=== PATIENT | female | born 1980 | race Caucasian/White ===

== ENCOUNTER → 2021-04-04 | Outpatient (CLI) | payer OTHER ==
[2021-04-05 08:10] LABS: HBSAG SCREEN Negative (Negative); HCV ANTIBODY <0.1 (0.0-0.9)
[2021-04-05 09:10] LABS: HIV AB/P24 AG SCREEN Non Reactive (Non Reactive)
[2021-04-06 11:11] LABS: HPV 16 Negative (Negative); HPV 18 Negative (Negative); HPV OTHER HR TYPES Negative (Negative)
== END ==
LOC: LAB SHORT 14:47
PROVIDERS: Family Medicine
DX: Z11.3 Encounter for screening for infections with a predominantly sexual mode of transmission (principal)
CPT/HCPCS: 86592; 86803; 87340; 87389

== ENCOUNTER → 2021-08-30 | Outpatient (CLI) | payer OTHER | END | disposition home or self-care (01) | LOC: LAB SHORT 07:42 → PLD 07:42 | DX: D22.30 Melanocytic nevi of unspecified part of face (principal) | CPT/HCPCS: 88305 ==

== ENCOUNTER 2023-02-15 06:45 | Day surgery (SDC) | payer OTHER ==
[2023-02-12 08:50] LABS: BASOPHILS ABSOLUTE AUTO 0.03 K/mm3 (0.00-0.23); BASOPHILS PERCENT AUTO 1 % (0-2); EOSINOPHILS ABSOLUTE AUTO 0.15 K/mm3 (0.00-0.68); EOSINOPHILS PERCENT AUTO 3 % (0-6); Hematocrit 41.8 % (33.0-51.0); IMMATURE GRAN ABSOLUTE AUTO 0.02 K/mm3 (0.00-0.10); IMMATURE GRAN PERCENT AUTO 0 % (0-1); LYMPHOCYTES PERCENT AUTO 25 % (21-46); MONOCYTES ABSOLUTE AUTO 0.39 K/mm3 (0.16-1.47); MONOCYTES PERCENT AUTO 7 % (4-13); Mean Corpuscular HGB Conc 33.5 g/dL (31.5-36.5); Mean Corpuscular Volume 87 fL (80-100); Mean Platelet Volume 10.8 fL (9.1-12.4); NEUTROPHILS ABSOLUTE AUTO 3.69 K/mm3 (1.96-9.15); NEUTROPHILS PERCENT AUTO 65 % (41-73); Platelet Count 232 K/mm3 (150-400); RDW Coefficient Variation 12.6 % (11.7-14.2); RDW Standard Deviation 39.8 fL (35.1-46.3); Red Blood Cell Count 4.83 M/mm3 (3.80-5.20); White Blood Cell Count 5.68 K/mm3 (4.00-11.30)
[~2023-02-15] VITALS: Ht 172.7 cm; Wt 127.7 kg
[2023-02-15] VITALS (18 sets, daily range): BP systolic 143–172; BP diastolic 85–121
[2023-02-15] MEDS ORDERED: CALCIUM 500+D1 EACH PO (07:22)
[2023-02-15] MEDS ORDERED: MULVITA PO (07:23)
[2023-02-15] MEDS ORDERED: Cranberry425 MG PO (07:23)
[2023-02-15] MEDS ORDERED: IRON VITAMIN C PO (07:24)
[2023-02-15] MEDS ORDERED: ONDA4ODT PO (07:25)
[2023-02-15] MEDS ORDERED: LOTREXONE1.5 MG (07:25)
[2023-02-15] MEDS ORDERED: VITAMIN B122500 MC1 PO (07:26)
[2023-02-15] MEDS ORDERED: ROPI.25 PO (07:27)
--- NOTE | 2023-02-15 07:43 | NUR ---
Ambulatory in Day Surgery History, Chart, Medications and Allergies reviewed before start of procedure. Pre-Op teaching done. Pt verbalizes understanding.
--- NOTE | 2023-02-15 08:06 | NUR ---
02/15/23 0806 Ambika Greer History, Chart, Medications and Allergies reviewed before start of procedure.MONITOR INTACT WITH CONTINUOUS PULSE OXIMETRY, CONTINUOUS END TITAL CO2, AND INTERMITTENT BLOOD PRESSURE.3-LEAD EKG REVIEWED WITH PHYSICIAN PRIOR TO START OF PROCEDURE.PACER PADS IN PLACE.O2 VIA N/C INTACT THROUGHOUT SEDATION/PROCEDURE.DR. CHAVEZ FOR ANESTHESIA.
--- NOTE | 2023-02-15 13:51 | NUR ---
PT ARRIVED TO UNIT FROM PACU C/O OF VIEIRA CATH CAUSING IRRITATION. DC'D PER ORDERS PER PT REQUEST. PT GOT UP TO RESTROOM WITH BINDER IN PLACE AND GAIT BELT FOR SAFETY. VOIDED SMALL AMOUNT BUT REPORTED STILL FELT IRRITATION. MEDICATED PER ORDERS FOR NAUSEA AND PAIN. CALL LIGHT IN REACH. SISTER BEDSIDE.
--- NOTE | 2023-02-15 17:15 | NUR ---
SUMMARY MEDICATED PT PER ORDERS FOR PAIN SINCE ARRIVING TO FLOOR. PT HAS SLEPT OFF AND ON. PT VOIDING. TOLERATED SMALL AMOUNT PO INTAKE WITH PAIN PILL. PT WAS MEDICATED SHORTLY AFTER ARRIVING TO UNIT FOR NAUSEA. NO EMESIS NOTED. USES CALL LIGHT APPROPRIATELY. SISTER BEDSIDE.
[2023-02-16 04:06] VITALS: BP 174/102
[2023-02-16 04:37] LABS: BASOPHILS ABSOLUTE AUTO 0.02 K/mm3 (0.00-0.23); BASOPHILS PERCENT AUTO 0 % (0-2); EOSINOPHILS ABSOLUTE AUTO 0.02 K/mm3 (0.00-0.68); EOSINOPHILS PERCENT AUTO 0 % (0-6); Hematocrit 40.7 % (33.0-51.0); Hemoglobin 13.8 g/dL (11.5-16.0); IMMATURE GRAN ABSOLUTE AUTO 0.03 K/mm3 (0.00-0.10); IMMATURE GRAN PERCENT AUTO 0 % (0-1); LYMPHOCYTES ABSOLUTE AUTO 1.18 K/mm3 (0.84-5.20); LYMPHOCYTES PERCENT AUTO 11 % (21-46); MONOCYTES ABSOLUTE AUTO 0.77 K/mm3 (0.16-1.47); MONOCYTES PERCENT AUTO 7 % (4-13); Mean Corpuscular HGB 29.1 pg (26.0-34.0); Mean Corpuscular HGB Conc 33.9 g/dL (31.5-36.5); Mean Corpuscular Volume 86 fL (80-100); Mean Platelet Volume 10.7 fL (9.1-12.4); NEUTROPHILS ABSOLUTE AUTO 8.54 K/mm3 (1.96-9.15); NEUTROPHILS PERCENT AUTO 81 % (41-73); Platelet Count 258 K/mm3 (150-400); RDW Coefficient Variation 12.7 % (11.7-14.2); RDW Standard Deviation 39.8 fL (35.1-46.3); Red Blood Cell Count 4.74 M/mm3 (3.80-5.20); White Blood Cell Count 10.56 K/mm3 (4.00-11.30)
--- NOTE | 2023-02-16 06:10 | NUR ---
SHIFT SUMMARY POD 1 TOTAL LAP HYSTR. VS WNL FOR PT. NO ACUTE CHANGES OVERNIGHT. LAP SITE x3 C/D/I. PT AMBULATING TO RESTROOM INDEPENDENTLY. PT REPORTS NO DRAINAGE ON PERLA PADS WHEN TOILETING. PAIN REPORTS PAIN TOLERABLE, MEDICATED PER EMAR - BASELINE CHRONIC PAIN, USE OF HEAT & ICE AND ABD BINDER FOR PAIN MANAGEMENT. TOLERATING ORALS. CALL LIGHT WITHIN REACH, BED IN LOWEST POSITION, WILL REPORT TO DAY RN.
[2023-02-16 07:20] VITALS: BP 153/90
[2023-02-16] MEDS ORDERED: IBUP400 PO (11:17)
[2023-02-16] MEDS ORDERED: Percocet 5-3251 EACH PO (11:18)
[2023-02-16] MEDS ORDERED: PROM25 PO (11:19)
[2023-02-16] MEDS ORDERED: SIME80CH PO (11:20)
--- NOTE | 2023-02-16 13:04 | NUR ---
DISCHARGE: PT DOING WELL POST OP. DC PACKET PRINTED AND PT EDUCATED. PT ALREADY HAS SCRIPTS . PT VERBALIZED UNDERSTANDING OF POST OP EDUCATION. LEFT UNIT VIA WHEELCHAIR AT 1150
== END 2023-02-16 11:53 | disposition home or self-care (01) ==
LOC: ORSCMMR 06:45 → ORD 08:00 → ORSCMMR 08:00 → SURS 12:25 → ORSCMMR 02-16 11:53
PROVIDERS: Obstetrics & Gynecology
PROC: 0UT7FZZ Resection of Bilateral Fallopian Tubes, Via Natural or Artificial Opening With Percutaneous Endoscopic Assistance (ICD-10-PCS; principal; 2023-02-15 08:00)
PROC: 0U5F4ZZ Destruction of Cul-de-sac, Percutaneous Endoscopic Approach (ICD-10-PCS; principal; 2023-02-15 08:00)
PROC: 0UT9FZZ Resection of Uterus, Via Natural or Artificial Opening With Percutaneous Endoscopic Assistance (ICD-10-PCS; principal; 2023-02-15 08:00)
DX: N92.1 Excessive and frequent menstruation with irregular cycle (principal); N94.6 Dysmenorrhea, unspecified; N80.329 Endometriosis of the posterior cul-de-sac, unspecified depth; E66.9 Obesity, unspecified; Z68.41 Body mass index [BMI] 40.0-44.9, adult; J45.909 Unspecified asthma, uncomplicated; N72 Inflammatory disease of cervix uteri; N83.8 Other noninflammatory disorders of ovary, fallopian tube and broad ligament; Z79.899 Other long term (current) drug therapy
CPT/HCPCS: 36415; 84702; 85025; 86850; 86900; 86901; 88305; 88307; A9270; J0360; J0690; J1100; J1170; J1885; J2250; J2405; J2704; J2710; J3010; J7120

== ENCOUNTER → 2023-12-09 | Outpatient (CLI) | payer OTHER ==
[~2023-12-09] MED LIST: CALCIUM 500+D1 EACH PO; Cranberry425 MG PO; IBUP400 PO; IRON VITAMIN C PO; LOTREXONE1.5 MG; MULVITA PO; ONDA4ODT PO; PROM25 PO; Percocet 5-3251 EACH PO; ROPI.25 PO; SIME80CH PO; VITAMIN B122500 MC1 PO
== END ==
LOC: LAB 14:49 → LAB SHORT 14:49
DX: L02.92 Furuncle, unspecified (principal)
CPT/HCPCS: 87070; 87075; 87077; 87147; 87186; 87205

== ENCOUNTER → 2024-01-11 | Outpatient (CLI) | payer OTHER | LOC: LAB SHORT 15:55 → LAB 15:55 | DX: N39.0 Urinary tract infection, site not specified (principal) | CPT/HCPCS: 87086 ==

== ENCOUNTER 2024-01-25 06:10 | Emergency (ER) | payer OTHER ==
[~2024-01-25] VITALS: Ht 172.7 cm; Wt 110.2 kg
[2024-01-25] MEDS ORDERED: Ondansetron HCl 2 MG / ML 2ML Vial IV ONE (06:25)
[2024-01-25 06:38] LABS: Source, Urine Clean Catch
[2024-01-25 06:46] LABS: Appearance, Urine Clear (Clear); Bilirubin, Urine Neg (Neg); Blood, Urine 1+ (Neg); Color, Urine Yellow (P-Yellow); Glucose Qualitative, Urine Neg (Neg); Ketones, Urine Neg (Neg); Leukocyte Esterase, Urine Neg (Neg); Nitrite, Urine Neg (Neg); Protein, Urine Neg (Neg); Urobilinogen, Urine NORM (Normal)
[2024-01-25 06:48] LABS: BASOPHILS ABSOLUTE AUTO 0.05 K/mm3 (0.00-0.23); BASOPHILS PERCENT AUTO 0 % (0-2); EOSINOPHILS ABSOLUTE AUTO 0.01 K/mm3 (0.00-0.68); EOSINOPHILS PERCENT AUTO 0 % (0-6); Hematocrit 44.7 % (33.0-51.0); Hemoglobin 15.3 g/dL (11.5-16.0); IMMATURE GRAN ABSOLUTE AUTO 0.07 K/mm3 (0.00-0.10); IMMATURE GRAN PERCENT AUTO 0 % (0-1); LYMPHOCYTES ABSOLUTE AUTO 0.73 K/mm3 (0.84-5.20); LYMPHOCYTES PERCENT AUTO 4 % (21-46); MONOCYTES ABSOLUTE AUTO 0.49 K/mm3 (0.16-1.47); MONOCYTES PERCENT AUTO 3 % (4-13); Mean Corpuscular HGB 29.6 pg (26.0-34.0); Mean Corpuscular HGB Conc 34.2 g/dL (31.5-36.5); Mean Corpuscular Volume 87 fL (80-100); Mean Platelet Volume 10.2 fL (9.1-12.4); NEUTROPHILS PERCENT AUTO 93 % (41-73); Platelet Count 317 K/mm3 (150-400); RDW Coefficient Variation 12.6 % (11.7-14.2); RDW Standard Deviation 39.8 fL (35.1-46.3); Red Blood Cell Count 5.17 M/mm3 (3.80-5.20); White Blood Cell Count 19.35 K/mm3 (4.00-11.30)
[2024-01-25 06:55] LABS: Bacteria Rare /hpf; Red Blood Cells, Urine 0-2 /hpf (0-2); Squamous Epithelial Cells Few /hpf (Few); White Blood Cells, Urine 0-2 /hpf (0-5)
[2024-01-25 07:12] LABS: Albumin/Globulin Ratio 1.2 (0.8-1.8); Bilirubin, Total 0.6 mg/dL (0.1-1.0); Bun/Creatinine Ratio 15.3 (12.0-20.0); Creatinine, Blood 1.11 mg/dL (0.40-1.00); Globulin, Blood 3.3 g/dL (2.2-4.0); Potassium, Blood 4.1 mmol/L (3.5-5.5); Total Protein, Blood 7.3 g/dL (6.4-8.2)
[2024-01-25] MEDS ORDERED: Ketorolac Tromethamine 30mg Vial IV ONE (07:20)
[2024-01-25 08:30] VITALS: BP 143/95
[2024-01-25] MEDS ORDERED: Morphine Sulfate IR 15 MG Tab PO ONE (08:55)
[2024-01-25] MEDS ORDERED: Morphine Sulfat15 MG PO (08:56)
[2024-01-25] MEDS ORDERED: ONDA4ODT MM (08:56)
[2024-01-25] MEDS ORDERED: TAMS.4ER PO (08:56)
== END 2024-01-25 09:04 | disposition home or self-care (01) ==
LOC: ER 06:10
PROVIDERS: Emergency Medicine
DX: N13.2 Hydronephrosis with renal and ureteral calculous obstruction (principal); E78.5 Hyperlipidemia, unspecified; J45.909 Unspecified asthma, uncomplicated; G43.909 Migraine, unspecified, not intractable, without status migrainosus; Z79.899 Other long term (current) drug therapy; Z88.5 Allergy status to narcotic agent
CPT/HCPCS: 74177; 80053; 81001; 83690; 85025; 96374-59; 96375; 99284-25; A9270; J1885; J2405; Q9967

== ENCOUNTER → 2024-02-14 | Outpatient (CLI) | payer OTHER ==
[~2024-02-14] MED LIST changes: +Morphine Sulfat15 MG PO; +ONDA4ODT MM; +TAMS.4ER PO
== END ==
LOC: LAB SHORT 17:19 → LAB 17:19
DX: J02.9 Acute pharyngitis, unspecified (principal)
CPT/HCPCS: 87081

== ENCOUNTER → 2024-03-31 | Outpatient (CLI) | payer OTHER ==
[2024-04-06 10:10] LABS: CALCIUM, URINE - PER 24H 197 mg/d (100-250); CALCIUM, URINE - PER VOLUME 19.7 mg/dL; CHLORIDE, URINE - PER 24H 60 mmol/d (140-250); CHLORIDE, URINE - PER VOLUME 60 mmol/L; CITRIC ACID, URINE - PER 24H 286 mg/d (320-1240); CITRIC ACID,URINE - PER VOLUME 286 mg/L; CREATININE, URINE - PER 24H 1380 mg/d (700-1600); CREATININE, URINE - PER VOLUME 138 mg/dL; HOURS COLLECTED 24 hr; MAGNESIUM, URINE - PER VOLUME 4.5 mg/dL; MAGNESIUM, URINE PER 24H 45 mg/d (12-199); OXALATE, URINE - PER 24H 24 mg/d (13-40); OXALATE, URINE - PER VOLUME 24 mg/L; PH, URINE 6.38 (5.00-7.50); PHOSPHORUS, URINE - PER 24H 620 mg/d (400-1300); PHOSPHORUS, URINE - PER VOLUME 62 mg/dL; POTASSIUM, URINE - PER 24H 24 mmol/d (25-125); POTASSIUM, URINE - PER VOLUME 24 mmol/L; SODIUM, URINE - PER 24H 64 mmol/d (51-286); SODIUM, URINE - PER VOLUME 64 mmol/L; SULFATE, URINE - PER 24H <5 mmol/d (6-30); SULFATE, URINE - PER VOLUME <5 mmol/L; TOTAL VOLUME 1000 mL; URIC ACID, URINE - PER 24H 431 mg/d (250-750); URIC ACID, URINE - PER VOLUME 43.1 mg/dL; URINE SUPERSATURATION INTERP Abnormal; URINE SUPERSATURATION, CAHPO4 6.62; URINE SUPERSATURATION, CAOX 12.84
== END ==
LOC: LAB SHORT 07:54 → LAB 07:54 → LAB FUT 01-10 12:25
PROVIDERS: Physician Assistant Medical
DX: N13.2 Hydronephrosis with renal and ureteral calculous obstruction (principal); N39.0 Urinary tract infection, site not specified
CPT/HCPCS: 81003; 81050; 82131; 82140; 82340; 82436; 82507; 82570; 83735; 83935; 83945; 84105; 84133; 84300; 84392; 84560

== ENCOUNTER 2024-05-12 17:35 | Emergency (ER) | payer OTHER ==
[~2024-05-12] VITALS: Ht 172.7 cm; Wt 103.0 kg
[2024-05-12 18:36] VITALS: BP 134/83
[2024-05-12 18:49] LABS: BASOPHILS ABSOLUTE AUTO 0.04 K/mm3 (0.00-0.23); BASOPHILS PERCENT AUTO 1 % (0-2); EOSINOPHILS ABSOLUTE AUTO 0.11 K/mm3 (0.00-0.68); EOSINOPHILS PERCENT AUTO 2 % (0-6); Hematocrit 40.4 % (33.0-51.0); Hemoglobin 13.7 g/dL (11.5-16.0); IMMATURE GRAN ABSOLUTE AUTO 0.01 K/mm3 (0.00-0.10); IMMATURE GRAN PERCENT AUTO 0 % (0-1); LYMPHOCYTES ABSOLUTE AUTO 1.47 K/mm3 (0.84-5.20); LYMPHOCYTES PERCENT AUTO 22 % (21-46); MONOCYTES ABSOLUTE AUTO 0.51 K/mm3 (0.16-1.47); MONOCYTES PERCENT AUTO 8 % (4-13); Mean Corpuscular HGB 30.2 pg (26.0-34.0); Mean Corpuscular HGB Conc 33.9 g/dL (31.5-36.5); Mean Corpuscular Volume 89 fL (80-100); Mean Platelet Volume 10.7 fL (9.1-12.4); NEUTROPHILS ABSOLUTE AUTO 4.53 K/mm3 (1.96-9.15); NEUTROPHILS PERCENT AUTO 68 % (41-73); Platelet Count 245 K/mm3 (150-400); RDW Coefficient Variation 13.2 % (11.7-14.2); RDW Standard Deviation 43.3 fL (35.1-46.3); Red Blood Cell Count 4.54 M/mm3 (3.80-5.20); White Blood Cell Count 6.67 K/mm3 (4.00-11.30)
[2024-05-12 19:25] LABS: Albumin/Globulin Ratio 1.3 (0.8-1.8); Bilirubin, Total 0.5 mg/dL (0.1-1.0); Bun/Creatinine Ratio 15.4 (12.0-20.0); Calcium, Blood 8.9 mg/dL (8.5-10.1); Creatinine, Blood 0.91 mg/dL (0.40-1.00); Potassium, Blood 3.5 mmol/L (3.5-5.5)
[2024-05-12 22:11] LABS: Source, Urine Clean Catch
[2024-05-12 22:19] LABS: Appearance, Urine Clear (Clear); Bilirubin, Urine Neg (Neg); Blood, Urine Neg (Neg); Color, Urine Yellow (P-Yellow); Glucose Qualitative, Urine Neg (Neg); Ketones, Urine Neg (Neg); Leukocyte Esterase, Urine Neg (Neg); Nitrite, Urine Neg (Neg); Protein, Urine 1+ (Neg); Urobilinogen, Urine NORM (Normal)
== END 2024-05-12 22:37 | disposition home or self-care (01) ==
LOC: ER 17:35
PROVIDERS: Physician Assistant
DX: R10.32 Left lower quadrant pain (principal); Z88.8 Allergy status to other drugs, medicaments and biological substances; Z88.5 Allergy status to narcotic agent; Z79.899 Other long term (current) drug therapy
CPT/HCPCS: 74177; 80053; 85025; 99284-25; Q9967